=== PATIENT | male | born 1945 | race Caucasian/White ===

== ENCOUNTER 2016-11-03 13:45 | Inpatient (IN) | payer MEDICARE, MEDICAID, OTHER ==
[2016-11-03] MEDS ORDERED: METHYLPREDNISOLONE 125 MG/2 ML VIAL IV ONE (13:59)
[2016-11-03] MEDS ORDERED: Albuterol/Ipratropium Neb 3 ML NEB NEB ONE (13:59)
[2016-11-03] MEDS ORDERED: ALBUTEROL 0.083% 3 ML NEB NEB ONE ×2 (13:59→15:33)
--- NOTE | 2016-11-03 14:05 | EDPRACDOC ---
- General Information Information Source: Patient Mode Of Arrival: Car - History of Present Illness Onset: last night HPI: Patient reports increasing SOB for about 3 days, using inhaler x 4 today without relief, states has O2 at home to wear when doing activities as needed. States normally does not wear it often. Reports fever, cough with minimal sputum production and unsure of color. No ear pain or sore throat. Denies CP. Reports some abdominal pain but has gastroenteritis at this time per patient. Patient with hx of COPD. Current Symptoms: Reports: Cough Shortness of Breath: Moderate Cough: Reports: Productive Ear Symptoms: Reports: None Fever Severity/Quality: Reports: subjective Oral Intake: Normal Urinary Output: Normal Relevant History of: COPD Associated Signs & Symptoms:: Reports: Cough <Radha Alva - Last Filed: 11/03/16 14:55> <Alia Sanchez - Last Filed: 11/03/16 15:45> - General Information Chief Complaint: Dyspnea/Resp distress Stated Complaint: COUGH/SHOB - HX COPD Time Seen by Provider: 11/03/16 13:55 Home Medications: Home Medications Aspirin (Enteric Coated) [Halfprin] 1 mg PO DAILY 04/14/14 Budesonide/Formoterol Fumarate [Symbicort 160-4.5 Mcg Inhaler] 2 " INH .PRN Ca Carbonate/Vitamin D3/Vit K [Calcium + D Soft Chewable Tab] 1 mg PO TID Cyanocobalamin (Vitamin B-12) [Vitamin B-12] 1 mcg PO DAILY 04/14/14 Guaifenesin/Dextromethorphan [Siltussin Dm Self Liquid] 1 ml PO BID 04/14/14 Ipratropium/Albuterol Sulfate [Combivent Respimat] 2 mcg INH .PRN 04/14/14 Pantoprazole Sodium [Pantoprazole Sodium] 1 mg PO DAILY 04/14/14 Simethicone [Gas-X] 1 mg PO .PRN 04/14/14 Simvastatin 1 mg PO DAILY 04/14/14 Tamsulosin HCl [Flomax] 1 mg PO DAILY 04/14/14 Ibuprofen 600 mg PO TID 04/15/14 Allergies/Adverse Reactions: Allergies Allergy/AdvReac Type Severity Reaction Status Date / Time Penicillins Allergy Intermediate Itching Verified 11/03/16 13:48 adalimumab [From Humira] Allergy Rash-Genera Verified 11/03/16 13:49 lized cortisone [Cortisone] Allergy Rash-Locali Verified 11/03/16 13:48 zed ED Past Medical History - History Reviewed Yes Nurses notes reviewed and agree except as marked - Patient Medical History Respiratory History: Reports: Asthma, COPD, Emphysema Musculoskeletal History: Reports: Arthritis (rheumatoid), Rheumatoid Arthritis Systemic History: Reports: Cancer (prostate) Surgical History: Reports: Cholecystectomy, Tonsillectomy/Adnoidectomy - Family Medical History Reports: Cancer (FATHER COLON, BROTHER BLADDER CA, SISTER LUNG CA), Cardiac Disorders (FATHER). Denies: Hypertension, Diabetes, Stroke - Social Medical History Smoking Status: Heavy tobacco smoker (5 or more cigarettes/day or daily pipe/ cigar) ETOH: Social Substance Abuse: None Lives In: Home <Camden Alvay Umberto - Last Filed: 11/03/16 14:55> EDM Review of Systems - Review of Systems ROS Negative Except as Marked: Yes All systems reviewed and were negative except as marked Constitutional: Fever Eyes: No Symptoms Reported Ears: No Symptoms Reported Throat: No Symptoms Reported Mouth: No Symptoms Reported Respiratory: Cough, Shortness of Breath, Wheezing, Sputum, Dyspnea Cardiovascular: No Symptoms Reported Gastrointestinal: Pain Genitourinary: No Symptoms Reported Neurological: No Symptoms Reported Musculoskeletal: No Symptoms Reported Integumentary: No Symptoms Reported <Camden Alvay Umberto - Last Filed: 11/03/16 14:55> - Physical Exam Constitutional: Alert (Awake), No apparent distress Oriented to: Time, Person, Place Last recorded Vital Signs: Last Vital Signs Temp 98.5 F 11/03/16 13:49 Pulse 94 11/03/16 13:49 Resp 22 11/03/16 13:49 BP 151/83 11/03/16 13:49 Pulse Ox 88 L 11/03/16 13:49 Oxygen Pulse Oxygen Saturation 88 O2 Device Oxygen Flow Rate Fraction of Inspired Oxygen ( FIO2) - HEENT Head: Normal ( normocephalic) Eye Exam: Normal (PERRL, EOMI, Sclera white) Oropharynx: Normal (Pharynx:Moist without exudate,Gums-no swelling) Neck: Normal (FROM, trachea at midline) - Respiratory/Cardiovascular Respiratory: Diminished, Wheezes Cardiovascular: Normal (RRR without murmur, gallop or rub) - GI Auscultation: Normal (NABS) Tenderness: Non tender - Musculoskeletal Back: Normal (Non-Tender) Extremities: Normal (Normal tone, Pulses 2+ No cyanosis or edema, FROM) - Integumentary Skin: Normal, Warm, Dry Lymphatics: Normal (no adenopathy) - Neurologic Memory Impaired: Normal Motor Function: Normal (Normal tone, Pulses 2+ No cyanosis or edema, FROM) Mood Description: Normal <ArtieRadha - Last Filed: 11/03/16 14:55> - Physical Exam Last recorded Vital Signs: Last Vital Signs Temp 98.5 F 11/03/16 13:49 Pulse 90 11/03/16 14:41 Resp 24 11/03/16 14:41 BP 154/69 11/03/16 14:41 Pulse Ox 95 11/03/16 14:41 Oxygen Pulse Oxygen Saturation 95 O2 Device Partial Rebreather Oxygen Flow Rate Fraction of Inspired Oxygen ( FIO2) <Alia Sanchez - Last Filed: 11/03/16 15:45> - Results 11/03/16 14:10 11/03/16 14:10 - EKG EKG #1 EKG Time: 14:01 -: Yes EKG interpreted by me Rate: bpm: 88 [place]: LAD Rhythm: NSR Block: None ST: Nonsp <Camden Alvay Umberto - Last Filed: 11/03/16 14:55> - Results 11/03/16 14:10 11/03/16 15:00 WBC 9.2 xk/uL (3.8-10.8) 11/03/16 14:10 RBC 4.89 xM/uL (4.70-6.10) 11/03/16 14:10 Hgb 15.8 g/dL (14.0-18.0) 11/03/16 14:10 Hct 47.4 % (42-52) 11/03/16 14:10 MCV 97 fL (80-94) H 11/03/16 14:10 MCH 32.4 pg (27-32) H 11/03/16 14:10 MCHC 33.4 g/dl (33-36) 11/03/16 14:10 RDW 13.0 % (11.5-14.5) 11/03/16 14:10 Plt Count 169 xk/uL (130-400) 11/03/16 14:10 MPV 8.7 fL (7.4-10.4) 11/03/16 14:10 Neut % (Auto) 72.3 % (45-76) 11/03/16 14:10 Lymph % (Auto) 12.3 % (17-44) L 11/03/16 14:10 [place] % (Auto) 14.5 % (3-10) H 11/03/16 14:10 Eos % (Auto) 0.1 % (0-5) 11/03/16 14:10 Baso % (Auto) 0.8 % (0-2) 11/03/16 14:10 Absolute Neuts (auto) 6.62 xk/uL (1.7-8.2) 11/03/16 14:10 Absolute Lymphs (auto) 1.10 xk/uL (0.65-4.75) 11/03/16 14:10 PT 10.5 SEC (9.2-11.2) 11/03/16 14:10 INR 1.0 11/03/16 14:10 APTT 27.7 SEC (22-35) 11/03/16 14:10 Puncture Site Right radial 11/03/16 14:25 pH 7.420 pH UNITS (7.35-7.45) 11/03/16 14:25 pCO2 39.0 mmHg (35-45) 11/03/16 14:25 pO2 58.0 mmHg (80-100) L 11/03/16 14:25 HCO3 25.3 MMOL/L (22-26) 11/03/16 14:25 Total CO2 26.5 MMOL/L (23-27) 11/03/16 14:25 Base Excess 0.8 (+/- 2) 11/03/16 14:25 FiO2 % 2lpmnc 11/03/16 14:25 Specimen Drawn By Omar 11/03/16 14:25 Sodium 135 mEq/L (137-146) L 11/03/16 15:00 Potassium 4.1 mEq/L (3.5-5.1) 11/03/16 15:00 Chloride 97 mEq/L (98-107) L 11/03/16 15:00 Carbon Dioxide 25 mMOL/L (22-33) 11/03/16 15:00 Anion Gap 17 mEq/L (8-16) H 11/03/16 15:00 BUN 9 MG/DL (9-20) 11/03/16 15:00 Creatinine 0.60 MG/DL (0.66-1.25) L 11/03/16 15:00 Estimated GFR (MDRD) > 60 mL/min (>=60) 11/03/16 15:00 Glucose 86 MG/DL (70-99) 11/03/16 15:00 Calculated Osmolality 258 MOs/Kg (270-290) L 11/03/16 15:00 Calcium 8.7 MG/DL (8.4-10.2) 11/03/16 15:00 Total Bilirubin 0.5 MG/DL (0.2-1.3) 11/03/16 15:00 AST 63 IU/L (17-59) H 11/03/16 15:00 ALT 54 IU/L (21-72) 11/03/16 15:00 Alkaline Phosphatase 81 IU/L (50-160) 11/03/16 15:00 Creatine Kinase 42 IU/L (55-170) L 11/03/16 15:00 Troponin I < 0.01 ng/mL (<.04) 11/03/16 15:00 Yhq-W-Hfrzcpbgcpv Pept 274 pg/mL (0-900) 11/03/16 15:00 Total Protein 7.8 G/DL (6.3-8.2) 11/03/16 15:00 Albumin 4.2 G/DL (3.5-5.0) 11/03/16 15:00 Lab Results 11/03/16 11/03/16 11/03/16 15:00 14:25 14:10 WBC RBC Hgb Hct MCV MCH MCHC RDW Plt Count MPV Neut % (Auto) Lymph % (Auto) [place] % (Auto) Eos % (Auto) Baso % (Auto) Absolute Neuts (auto) Absolute Lymphs (auto) PT 10.5 INR 1.0 APTT 27.7 Puncture Site Right radial pH 7.420 pCO2 39.0 pO2 58.0 L HCO3 25.3 Total CO2 26.5 Base Excess 0.8 FiO2 % 2lpmnc Specimen Drawn By Omar Sodium 135 L Potassium 4.1 Chloride 97 L Carbon Dioxide 25 Anion Gap 17 H BUN 9 Creatinine 0.60 L Estimated GFR (MDRD) > 60 Glucose 86 Calculated Osmolality 258 L Calcium 8.7 Total Bilirubin 0.5 AST 63 H ALT 54 Alkaline Phosphatase 81 Creatine Kinase 42 L Troponin I < 0.01 Clq-L-Nfuahwiozkp Pept 274 Total Protein 7.8 Albumin 4.2 11/03/16 14:10 WBC 9.2 RBC 4.89 Hgb 15.8 Hct 47.4 MCV 97 H MCH 32.4 H MCHC 33.4 RDW 13.0 Plt Count 169 MPV 8.7 Neut % (Auto) 72.3 Lymph % (Auto) 12.3 L [place] % (Auto) 14.5 H Eos % (Auto) 0.1 Baso % (Auto) 0.8 Absolute Neuts (auto) 6.62 Absolute Lymphs (auto) 1.10 PT INR APTT Puncture Site pH pCO2 pO2 HCO3 Total CO2 Base Excess FiO2 % Specimen Drawn By Sodium Potassium Chloride Carbon Dioxide Anion Gap BUN Creatinine Estimated GFR (MDRD) Glucose Calculated Osmolality Calcium Total Bilirubin AST ALT Alkaline Phosphatase Creatine Kinase Troponin I Xyo-O-Actdknhsthy Pept Total Protein Albumin <Alia Sanchez - Last Filed: 11/03/16 15:45> <Radha Alva - Last Filed: 11/03/16 14:55> - Departure Yes I personally saw and evaluated the patient. Disposition: Admit IP To This Hospital Education/Counseling Given To: Patient Education/Counseling Given Regarding: Diagnosis, Treatment Decision to Admit Time: 15:42 Decision to admit date: 11/03/16 Decision to admit: from ED - Physician Consulted Hospitalist Provider Called: Gissel Arreola <Alia Sanchez - Last Filed: 11/03/16 15:45> - Departure Condition: Fair Final Diagnosis: Acute bronchitis, Acute exacerbation of chronic obstructive airways disease, Tobacco abuse Referrals: German Kirk MD [Primary Care Provider] - One Week
[2016-11-03 14:28] LABS: AUTOMATED BASOPHIL 0.8 % (0-2); AUTOMATED EOSINOPHIL 0.1 % (0-5); AUTOMATED LYMPH 12.3 % (17-44); AUTOMATED MONOCYTE 14.5 % (3-10); AUTOMATED NEUTROPHIL 72.3 % (45-76); MPV 8.7 fL (7.4-10.4)
[2016-11-03 14:31] LABS: ABG Draw Site Right Radial; ALLEN'S TEST PASS; BEb 0.8 (+/- 2); TCO2 26.5 MMOL/L (23-27)
[2016-11-03 14:41] LABS: PARTIAL THROMB. TIME 27.7 SEC (22-35)
--- NOTE | 2016-11-03 14:46 | DIRPT ---
CLINICAL DATA: Shortness of breath. EXAM: CHEST 2 VIEW COMPARISON: December 13, 2011. FINDINGS: The heart size and mediastinal contours are within normal limits. No pneumothorax or significant pleural effusion is noted. Stable mild biapical scarring is noted. No acute pulmonary disease is noted. Hyperinflation of the lungs is noted. The visualized skeletal structures are unremarkable. IMPRESSION: Hyperinflation of the lungs is noted. No acute cardiopulmonary abnormality seen. Electronically Signed By: Elton Rodriguez Jr, M.D. On: 11/03/2016 14:43
[2016-11-03 15:21] LABS: BLOOD UREA NITROGEN 9 MG/DL (9-20); CALCIUM 8.7 MG/DL (8.4-10.2); CALCULATED OSMOLALITY 258 MOs/Kg (270-290); CHLORIDE 97 mEq/L (98-107); CPK TOTAL WITH POSSIBLE MB 42 IU/L (55-170); GLUCOSE 86 MG/DL (70-99); SODIUM LEVEL 135 mEq/L (137-146); TOTAL PROTEIN 7.8 G/DL (6.3-8.2)
[2016-11-03] MEDS ORDERED: AZITHROMYCIN 250 MG TAB PO ONE (15:41)
[2016-11-03] MEDS ORDERED: CEFTRIAXONE 1 GM in D5W 100 ML IV ONE (15:41)
[2016-11-03] MEDS ORDERED: ONDANSETRON HCL 4 MG/2 ML VIAL IV PRN (16:12)
[2016-11-03] MEDS ORDERED: ALBUTEROL 0.083% 3 ML NEB NEB PRN (16:19)
--- NOTE | 2016-11-03 16:40 | HISTPHYS ---
- Chief Complaint Shortness of breath - History of Present Illness This is a pleasant 71-year-old male who was a history of tobacco abuse and has a history of COPD as a result. He is being admitted to the hospital this afternoon due to COPD exacerbation consisting of increased sputum production, shortness of breath and cough especially with exertion. The patient tells that he has been in his usual state of health, using oxygen only intermittently as needed with exertion, when in the last 4 5 days he started to get more shortness of breath, even at rest. He has some increased cough, but no sputum production. Denies any fevers or chills at home. Although he does later admit to feeling a little bit warm at home. He has some associated abdominal pain and nausea that started yesterday, though he is not had any diarrhea and has not vomited. No therapies tried prior to arrival. Exertion makes it worse, rest makes it better. He has been using his inhaled bronchodilators as well as bronchodilator medications by his nebulizer up to 4 times per day, without any relief and the last couple of days. As such, he presented to the emergency department this afternoon, and is being admitted to the hospital by the hospitalist group due to his COPD exacerbation. - Medical History Respiratory History: Reports: Asthma, COPD, Emphysema Musculoskeletal History: Reports: Arthritis (rheumatoid), Rheumatoid Arthritis Systemic History: Reports: Cancer (prostate) - Surgical History Reports: Cholecystectomy, Tonsillectomy/Adnoidectomy - Medictions/Allergies Allergies Penicillins Allergy (Intermediate, Verified 11/03/16 13:48) Itching adalimumab [From Humira] Allergy (Verified 11/03/16 13:49) Rash-Generalized cortisone [Cortisone] Allergy (Verified 11/03/16 13:48) Rash-Localized Home Medications Aspirin (Enteric Coated) [Halfprin] 1 mg PO DAILY 04/14/14 Budesonide/Formoterol Fumarate [Symbicort 160-4.5 Mcg Inhaler] 2 " INH .PRN Ca Carbonate/Vitamin D3/Vit K [Calcium + D Soft Chewable Tab] 1 mg PO TID Cyanocobalamin (Vitamin B-12) [Vitamin B-12] 1 mcg PO DAILY 04/14/14 Guaifenesin/Dextromethorphan [Siltussin Dm Self Liquid] 1 ml PO BID 04/14/14 Ipratropium/Albuterol Sulfate [Combivent Respimat] 2 mcg INH .PRN 04/14/14 Pantoprazole Sodium [Pantoprazole Sodium] 1 mg PO DAILY 04/14/14 Simethicone [Gas-X] 1 mg PO .PRN 04/14/14 Simvastatin 1 mg PO DAILY 04/14/14 Tamsulosin HCl [Flomax] 1 mg PO DAILY 04/14/14 Ibuprofen 600 mg PO TID 04/15/14 - Family History Reports: Cancer (FATHER COLON, BROTHER BLADDER CA, SISTER LUNG CA), Cardiac Disorders (FATHER). Denies: Hypertension, Diabetes, Stroke - Social History Smoking Status: Heavy tobacco smoker (5 or more cigarettes/day or daily pipe/ cigar) - Review of Systems Yes All systems reviewed and were negative except as marked (And as mentioned in the history of present illness.) - Physical Exam Vital Signs: Initial Vitals Temperature 98.5 F 11/03/16 13:49 Pulse Rate 94 11/03/16 13:49 Respiratory Rate 22 11/03/16 13:49 Blood Pressure 151/83 11/03/16 13:49 Pulse Oxygen Saturation 88 L 11/03/16 13:49 Constitutional: No apparent distress, Alert Oriented to: Time, Person, Place Exam: Breathing comfortably on nasal cannula oxygen. Able to speak full sentences. - HEENT Head: Normal (normocephalic,atraumatic, trachea midline) Eye: Normal (EOMI, Sclera white) Oropharynx: Normal (moist) Nose: No Symptoms Reported (without discharge or bleeding) Respiratory: Diminished, Rales, Rhonchi, Wheezes. negative: Tachypnea, Excursion Cardiovascular: Normal (RRR, no murmurs, rubs or gallops) - GI Palpation: Normal (soft, non distended and nontender) - Musculoskeletal Extremities: Normal (normal tone, no cyanosis or edema) - Integumentary Skin: Normal (no rashes or lesions) - Focused CV Perfusion Exam Vital Signs: Last Vital Signs Temp 98.5 F 11/03/16 13:49 Pulse 94 11/03/16 16:12 Resp 18 11/03/16 16:12 BP 145/67 11/03/16 16:12 Pulse Ox 88 L 11/03/16 16:12 - Lab Results Laboratory Tests 11/03/16 11/03/16 11/03/16 14:10 14:10 14:25 WBC 9.2 Hgb 15.8 Hct 47.4 Plt Count 169 INR 1.0 pH 7.420 pCO2 39.0 pO2 58.0 L Sodium Potassium BUN Creatinine Total Bilirubin AST ALT Troponin I 11/03/16 15:00 WBC Hgb Hct Plt Count INR pH pCO2 pO2 Sodium 135 L Potassium 4.1 BUN 9 Creatinine 0.60 L Total Bilirubin 0.5 AST 63 H ALT 54 Troponin I < 0.01 - Diagnostic Findings Chest x-ray: The heart size and mediastinal contours are within normal limits. No pneumothorax or significant pleural effusion is noted. Stable mild biapical scarring is noted. No acute pulmonary disease is noted. Hyperinflation of the lungs is noted. The visualized skeletal structures are unremarkable. - Assessment (1) Acute exacerbation of chronic obstructive airways disease J44.1 - CHRONIC OBSTRUCTIVE PULMONARY DISEASE W (ACUTE) EXACERBATION Acute Patient being admitted to the hospital with COPD exacerbation, consisting of hypoxia and increased wheezing, cough with exertion. COPD education will be provided, supplemental oxygen as needed and will be weaned as tolerated. Patient will be given empiric IV antibiotics azithromycin and Rocephin, as well as IV steroid dose and taper. IV PPI while on IV steroids. Aggressive pulmonary toilet will be provided, respiratory therapy has been consulted. Check repeat x-ray in the morning (2) Nausea R11.0 - NAUSEA Acute P.r.n. Zofran IV (3) BPH (benign prostatic hyperplasia) N40.0 - BENIGN PROSTATIC HYPERPLASIA WITHOUT LOWER URINRY TRACT SYMP Acute Qualifiers: Prostatic enlargement morphology: P Lower urinary tract symptom presence: L Continue home Flomax (4) Acute bronchitis J20.9 - ACUTE BRONCHITIS, UNSPECIFIED Acute (5) Tobacco abuse Z72.0 - TOBACCO USE Acute
[2016-11-03] MEDS: PANTOPRAZOLE 40 MG VIAL IV SCH (18:19)
[2016-11-03] MEDS: ENOXAPARIN 40 MG/0.4 ML PFS SQ SCH (18:19)
[2016-11-03 18:30] LABS: CPK TOTAL WITH POSSIBLE MB 47 IU/L (55-170)
[2016-11-03] MEDS: Albuterol/Ipratropium Neb 3 ML NEB NEB SCH (18:45)
[2016-11-03] MEDS ORDERED: Vaccine Screening Complete SCH (19:00)
[2016-11-03] MEDS: METHYLPREDNISOLONE 125 MG/2 ML VIAL IV SCH (19:26)
[2016-11-04] MEDS: METHYLPREDNISOLONE 125 MG/2 ML VIAL IV SCH ×4 (01:11→20:39)
[2016-11-04] MEDS: Albuterol/Ipratropium Neb 3 ML NEB NEB SCH ×4 (03:16→19:44)
[2016-11-04 05:21] LABS: MPV 9.6 fL (7.4-10.4)
[2016-11-04 05:54] LABS: BLOOD UREA NITROGEN 12 MG/DL (9-20); CALCIUM 8.3 MG/DL (8.4-10.2); CALCULATED OSMOLALITY 258 MOs/Kg (270-290); CHLORIDE 98 mEq/L (98-107); GLUCOSE 126 MG/DL (70-99); SODIUM LEVEL 133 mEq/L (137-146)
--- NOTE | 2016-11-04 07:59 | GENMEDPROG ---
Chief Complaint: Wheezing and shortness of breath Subjective Note: On non-rebreather mask this morning, feels like his breathing is better in general. is at the bedside and tells me that he became severely short of breath and winded when he walked to the bathroom in his room. Notes Reviewed: Yes Events from last night noted and discussed with Clinical Staff Current Medication List: Reviewed Currently: Reports: Cough, Wheezing, GIL, SOB, Sputum DVT Prophylaxis: Yes - Physical Examination Vital Signs and I&O: Last Vital Signs Temp 97.6 F 11/04/16 07:50 Pulse 80 11/04/16 07:50 Resp 20 11/04/16 07:50 BP 147/66 11/04/16 07:50 Pulse Ox 91 11/04/16 07:50 Oxygen Pulse Oxygen Saturation 91 O2 Device Venturi Mask Oxygen Flow Rate 10 Fraction of Inspired Oxygen ( 40 FIO2) Intake & Output 11/02/16 11/03/16 11/04/16 11/05/16 06:59 06:59 06:59 06:59 Intake Total 100 Output Total 550 Balance -450 Patient's weight 71.35 kg General: Alert, Oriented x3, Cooperative, Mild distress Respiratory: Diminished, Rales, Rhonchi, Wheezes. negative: Tachypnea, Excursion Cardiovascular: Regular rate, No Gallops,Rubs/Murmurs GI: Normal bowel sounds, Soft, Non tender (non distended) Extremities/Musculoskeletal: Other (Normal Tone). negative: Edema, Cyanosis Lab/DI/Studies Reviewed: Laboratory Tests 11/04/16 11/04/16 04:45 04:45 WBC 5.0 Hgb 13.8 L D Potassium 4.5 BUN 12 Creatinine 0.50 L - Assessment (1) Acute exacerbation of chronic obstructive airways disease Acute J44.1 - CHRONIC OBSTRUCTIVE PULMONARY DISEASE W (ACUTE) EXACERBATION Comment/Plan: Patient was admitted to the hospital with COPD exacerbation, consisting of hypoxia and increased wheezing, cough with exertion. COPD education will be provided, supplemental oxygen as needed and will be weaned as tolerated. Patient is on empiric IV antibiotics azithromycin and Rocephin, as well as IV steroid dose and taper. IV PPI while on IV steroids. Aggressive pulmonary toilet will be provided, respiratory therapy has been consulted. Repeat chest x-ray this morning is pending, will be followed up on. (2) Nausea Acute R11.0 - NAUSEA Comment/Plan: P.r.n. Zofran IV (3) BPH (benign prostatic hyperplasia) Acute N40.0 - BENIGN PROSTATIC HYPERPLASIA WITHOUT LOWER URINRY TRACT SYMP Qualifiers: Prostatic enlargement morphology: P Lower urinary tract symptom presence: L Comment/Plan: Has history of prostate cancer. Continue home Flomax. He is followed by his urologist with periodic PSA levels. (4) Acute bronchitis Acute J20.9 - ACUTE BRONCHITIS, UNSPECIFIED (5) Tobacco abuse Acute Z72.0 - TOBACCO USE
[2016-11-04] MEDS: GUAIFEN 100 MG-DEXTROMETH 10 MG PER 5 ML PO SCH ×2 (09:07→20:39)
[2016-11-04] MEDS: TAMSULOSIN HCL 0.4 MG CAP PO SCH (09:08)
[2016-11-04] MEDS: SIMVASTATIN 40 MG TAB PO SCH (09:08)
--- NOTE | 2016-11-04 09:09 | DIRPT ---
CLINICAL DATA: Pneumonia, chest congestion and cough. EXAM: CHEST 2 VIEW COMPARISON: 11/03/2016. FINDINGS: COPD. Normal heart size. Atherosclerosis. Bronchitic change without focal infiltrates or failure. Chronic blunting CP angles. IMPRESSION: No active cardiopulmonary disease. Hyperinflation. No active infiltrates. Electronically Signed By: Rohit Bobo M.D. On: 11/04/2016 09:07
[2016-11-04] MEDS: AZITHROMYCIN 500 MG in D5W 250 ML IV SCH (16:09)
[2016-11-04] MEDS: CEFTRIAXONE 1 GM in D5W 100 ML IV SCH (18:08)
[2016-11-04] MEDS: ENOXAPARIN 40 MG/0.4 ML PFS SQ SCH (18:08)
[2016-11-04] MEDS: PANTOPRAZOLE 40 MG VIAL IV SCH (18:08)
[2016-11-05] MEDS: Albuterol/Ipratropium Neb 3 ML NEB NEB SCH ×4 (01:36→19:46)
[2016-11-05] MEDS: METHYLPREDNISOLONE 125 MG/2 ML VIAL IV SCH ×4 (01:56→21:44)
[2016-11-05 03:11] LABS: MPV 9.9 fL (7.4-10.4)
[2016-11-05 03:30] LABS: BLOOD UREA NITROGEN 14 MG/DL (9-20); CALCIUM 8.6 MG/DL (8.4-10.2); CALCULATED OSMOLALITY 263 MOs/Kg (270-290); CHLORIDE 99 mEq/L (98-107); GLUCOSE 129 MG/DL (70-99); SODIUM LEVEL 135 mEq/L (137-146)
[2016-11-05] MEDS: SIMVASTATIN 40 MG TAB PO SCH (08:20)
[2016-11-05] MEDS: TAMSULOSIN HCL 0.4 MG CAP PO SCH (08:20)
[2016-11-05] MEDS: GUAIFEN 100 MG-DEXTROMETH 10 MG PER 5 ML PO SCH ×2 (08:20→21:44)
[2016-11-05] MEDS: BUDESONIDE 0.5 MG NEB NEB SCH ×2 (09:01→19:49)
--- NOTE | 2016-11-05 09:34 | GENMEDPROG ---
Chief Complaint: COPD exacerbation Subjective Note: Overall slightly improved, but still getting very winded when he tries start to much, or ambulate to the bathroom. Notes Reviewed: Yes Events from last night noted and discussed with Clinical Staff Current Medication List: Reviewed Currently: Reports: Cough, Wheezing, GIL, SOB, Sputum DVT Prophylaxis: Yes - Physical Examination Vital Signs and I&O: Last Vital Signs Temp 97.9 F 11/05/16 07:39 Pulse 70 11/05/16 08:00 Resp 18 11/05/16 07:39 BP 118/67 11/05/16 07:39 Pulse Ox 94 11/05/16 08:54 Oxygen Pulse Oxygen Saturation 94 O2 Device Nasal Cannula Oxygen Flow Rate 4 Fraction of Inspired Oxygen ( 45 FIO2) Intake & Output 11/03/16 11/04/16 11/05/16 11/06/16 06:59 06:59 06:59 06:59 Intake Total 100 1060 Output Total 550 550 Balance -450 510 Patient's weight 71.35 kg 72.575 kg General: Alert, Oriented x3, Cooperative, Mild distress Respiratory: Diminished, Rales, Rhonchi, Wheezes (Slightly improved today). negative: Tachypnea, Excursion Cardiovascular: Regular rate, No Gallops,Rubs/Murmurs GI: Normal bowel sounds, Soft, Non tender (non distended) Extremities/Musculoskeletal: Other (Normal Tone). negative: Edema, Cyanosis Lab/DI/Studies Reviewed: Laboratory Tests 11/03/16 11/03/16 11/04/16 17:50 20:21 04:45 WBC 5.0 Hgb Potassium BUN Creatinine Troponin I < 0.01 < 0.01 11/05/16 11/05/16 02:30 02:30 WBC 15.6 H Hgb 13.7 L Potassium 4.5 BUN 14 Creatinine 0.50 L Troponin I - Assessment (1) Acute exacerbation of chronic obstructive airways disease Acute J44.1 - CHRONIC OBSTRUCTIVE PULMONARY DISEASE W (ACUTE) EXACERBATION Comment/Plan: Patient was admitted to the hospital with COPD exacerbation, consisting of hypoxia and increased wheezing, cough with exertion. COPD education will be provided, supplemental oxygen as needed and will be weaned as tolerated. Patient is on empiric IV antibiotics azithromycin and Rocephin, as well as IV steroid dose and taper. IV PPI while on IV steroids. Aggressive pulmonary toilet will be provided, respiratory therapy has been consulted. Continue present therapy, will not wean IV steroids further today as he is still getting quite winded. Wean oxygen as able later today. (2) Nausea Acute R11.0 - NAUSEA Comment/Plan: P.rlakeshia Zofran IV (3) BPH (benign prostatic hyperplasia) Acute N40.0 - BENIGN PROSTATIC HYPERPLASIA WITHOUT LOWER URINRY TRACT SYMP Qualifiers: Prostatic enlargement morphology: P Lower urinary tract symptom presence: L Comment/Plan: Has history of prostate cancer. Continue home Flomax. He is followed by his urologist with periodic PSA levels. (4) Acute bronchitis Acute J20.9 - ACUTE BRONCHITIS, UNSPECIFIED (5) Tobacco abuse Acute Z72.0 - TOBACCO USE
[2016-11-05] MEDS: CETIRIZINE HCL 10 MG TAB PO SCH (10:14)
[2016-11-05] MEDS: NICOTINE 21 MG PATCH TOP SCH (10:21)
[2016-11-05] MEDS: AZITHROMYCIN 500 MG in D5W 250 ML IV SCH (16:02)
[2016-11-05] MEDS: CEFTRIAXONE 1 GM in D5W 100 ML IV SCH (17:57)
[2016-11-05] MEDS: ENOXAPARIN 40 MG/0.4 ML PFS SQ SCH (17:57)
[2016-11-05] MEDS: PANTOPRAZOLE 40 MG TAB PO SCH (18:46)
[2016-11-06] MEDS: Albuterol/Ipratropium Neb 3 ML NEB NEB SCH ×4 (01:08→19:50)
[2016-11-06] MEDS: METHYLPREDNISOLONE 125 MG/2 ML VIAL IV SCH ×4 (01:54→19:47)
[2016-11-06] MEDS: ACETAMINOPHEN 325 MG/TAB TABLET PO PRN ×2 (02:00→15:06)
[2016-11-06 03:51] LABS: MPV 9.7 fL (7.4-10.4)
[2016-11-06 04:01] LABS: BLOOD UREA NITROGEN 14 MG/DL (9-20); CALCIUM 8.5 MG/DL (8.4-10.2); CALCULATED OSMOLALITY 264 MOs/Kg (270-290); CHLORIDE 102 mEq/L (98-107); GLUCOSE 121 MG/DL (70-99); SODIUM LEVEL 136 mEq/L (137-146)
[2016-11-06] MEDS: PANTOPRAZOLE 40 MG TAB PO SCH (05:46)
[2016-11-06] MEDS: BUDESONIDE 0.5 MG NEB NEB SCH ×2 (08:01→19:56)
[2016-11-06] MEDS: TAMSULOSIN HCL 0.4 MG CAP PO SCH (08:17)
[2016-11-06] MEDS: NICOTINE 21 MG PATCH TOP SCH (08:17)
[2016-11-06] MEDS: SIMVASTATIN 40 MG TAB PO SCH (08:18)
[2016-11-06] MEDS: CETIRIZINE HCL 10 MG TAB PO SCH (08:18)
[2016-11-06] MEDS: GUAIFEN 100 MG-DEXTROMETH 10 MG PER 5 ML PO SCH (08:18)
[2016-11-06] MEDS ORDERED: METHOTREXATE SODIUM 2.5 MG TAB PO SCH (09:00)
--- NOTE | 2016-11-06 12:19 | GENMEDPROG ---
Chief Complaint: sob still bad dry cough Notes Reviewed: Yes Events from last night noted and discussed with Clinical Staff Current Medication List: Reviewed Currently: Reports: Cough, Wheezing, GIL, SOB, Sputum DVT Prophylaxis: Yes - Physical Examination Vital Signs and I&O: Last Vital Signs Temp 97.5 F 11/06/16 11:23 Pulse 77 11/06/16 11:23 Resp 18 11/06/16 11:23 BP 143/73 11/06/16 11:23 Pulse Ox 93 11/06/16 11:23 Oxygen Pulse Oxygen Saturation 93 O2 Device Nasal Cannula Oxygen Flow Rate 3 Fraction of Inspired Oxygen ( 45 FIO2) Intake & Output 11/03/16 11/04/16 11/05/16 11/06/16 23:59 23:59 23:59 23:59 Intake Total 100 1060 1048 240 Output Total 550 1260 320 Balance 100 510 -212 -80 Patient's weight 70.579 kg 71.35 kg 72.575 kg 73.074 kg General: Alert, Oriented x3, Cooperative, Mild distress HEENT: Normal (Normocephalic, atraumatic;EOMI.Sclera white, Nares patent, without discharge or bleeding. No oropharyngeal lesions or erythema. Mucous membranes are dry.) Neck: Non-tender, Normal Trachea alignment, Normal inspection (No cervical lymphadenopathy. No supraclavicular lymphadenopathy.), No Masses palpable, Limited range of motion, Supple Lymphatics: Normal (No lymph node swelling or pain.) Respiratory: Diminished. negative: Rales, Rhonchi, Tachypnea, Wheezes, Excursion Cardiovascular: Regular rate and rhythm, Normal S1, No Gallops,Rubs/Murmurs, Normal S2 GI: Normal bowel sounds, Soft, Non tender (non distended) Extremities/Musculoskeletal: Other (Normal Tone). negative: Edema, Cyanosis Skin: Warm,Dry and Intact, No rashes, No significant lesion Neurological: Strength at 5/5 X4 ext (Motor 5/5 throughout.), Normal tone, Cranial nerves 3-12 NL ( 2-12 grossly intact.) Psych/Mental Status: Appropriate, Normal Affect Lab/DI/Studies Reviewed: 11/06/16 03:20 11/06/16 03:20 Laboratory Results - last 24 hr 11/06/16 11/06/16 03:20 03:20 WBC 13.9 H RBC 4.19 L Hgb 13.5 L Hct 41.1 L MCV 98 H MCH 32.2 H MCHC 32.9 L RDW 13.1 Plt Count 185 MPV 9.7 Sodium 136 L Potassium 4.5 Chloride 102 Carbon Dioxide 26 Anion Gap 13 BUN 14 Creatinine 0.50 L Estimated GFR (MDRD) > 60 Glucose 121 H Calculated Osmolality 264 L Calcium 8.5 - Assessment (1) Acute bronchitis Acute J20.9 - ACUTE BRONCHITIS, UNSPECIFIED Comment/Plan: On Rocephin Zithromax probiotic and steroids. (2) Acute exacerbation of chronic obstructive airways disease Acute J44.1 - CHRONIC OBSTRUCTIVE PULMONARY DISEASE W (ACUTE) EXACERBATION Comment/Plan: Patient was admitted to the hospital with COPD exacerbation, consisting of hypoxia and increased wheezing, cough with exertion. COPD education will be provided, supplemental oxygen as needed and will be weaned as tolerated. Patient is on empiric IV antibiotics azithromycin and Rocephin, as well as IV steroid dose and taper. IV PPI while on IV steroids. Aggressive pulmonary toilet will be provided, respiratory therapy has been consulted. Continue present therapy, will not wean IV steroids further today as he is still getting quite winded. Wean oxygen as able later today. (3) BPH (benign prostatic hyperplasia) Acute N40.0 - BENIGN PROSTATIC HYPERPLASIA WITHOUT LOWER URINRY TRACT SYMP Qualifiers: Prostatic enlargement morphology: unspecified morphology Lower urinary tract symptom presence: presence of symptoms unspecified Qualified Code(s): N40.0 - Benign prostatic hyperplasia without lower urinary tract symptoms Comment/Plan: Has history of prostate cancer. Continue home Flomax. He is followed by his urologist with periodic PSA levels. (4) Tobacco abuse Acute Z72.0 - TOBACCO USE Comment/Plan: 10 minutes discussion undertaken with concerning smoking cessation. He indicated he will attempt to quit. Case Care Discussed with: Patient, Nursing Staff, Resource Management, Other Education/Counseling Given To: Patient, Significant Other Education/Counseling Given Regarding: Diagnosis Total Time: 38 min + 10 min discussing cessation Critical Care: No Code: 29121 (12+) (407)
[2016-11-06] MEDS ORDERED: METHOTREXATE SODIUM 12.5 MG PO SCH (12:30)
[2016-11-06] MEDS ORDERED: FLUTICASONE PROPIONATE 16 GM BOT NAS SCH (13:00)
[2016-11-06] MEDS: AZITHROMYCIN 500 MG in D5W 250 ML IV SCH (16:22)
[2016-11-06] MEDS: NACL 0.65% NASAL 45 ML BOTTLE NAS SCH ×2 (16:22→19:46)
[2016-11-06] MEDS: PROBIOTIC BLEND TAB PO SCH (16:23)
[2016-11-06] MEDS: CALCIUM CARBONATE + VITAMIN D 500 MG TAB PO SCH (16:24)
[2016-11-06] MEDS: CEFTRIAXONE 1 GM in D5W 100 ML IV SCH (17:39)
[2016-11-06] MEDS: ENOXAPARIN 40 MG/0.4 ML PFS SQ SCH (17:40)
[2016-11-06] MEDS: GUAIFENESIN 200 MG/10 ML UDC PO SCH (19:48)
[2016-11-07] MEDS: Albuterol/Ipratropium Neb 3 ML NEB NEB SCH ×4 (01:20→19:46)
[2016-11-07] MEDS: NACL 0.65% NASAL 45 ML BOTTLE NAS SCH ×5 (02:35→21:37)
[2016-11-07] MEDS: METHYLPREDNISOLONE 125 MG/2 ML VIAL IV SCH ×2 (02:35→07:57)
[2016-11-07 03:56] LABS: MPV 9.3 fL (7.4-10.4)
[2016-11-07 04:08] LABS: BLOOD UREA NITROGEN 13 MG/DL (9-20); CALCIUM 8.8 MG/DL (8.4-10.2); CALCULATED OSMOLALITY 263 MOs/Kg (270-290); CHLORIDE 100 mEq/L (98-107); GLUCOSE 108 MG/DL (70-99); SODIUM LEVEL 136 mEq/L (137-146)
[2016-11-07 05:00] VITALS: BMI 22.6
[2016-11-07] MEDS: PANTOPRAZOLE 40 MG TAB PO SCH ×2 (06:38→16:53)
[2016-11-07] MEDS: BUDESONIDE 0.5 MG NEB NEB SCH ×2 (07:40→19:50)
[2016-11-07] MEDS: FLUTICASONE PROPIONATE 16 GM BOT NAS SCH (07:56)
[2016-11-07] MEDS: TAMSULOSIN HCL 0.4 MG CAP PO SCH (07:58)
[2016-11-07] MEDS: NICOTINE 21 MG PATCH TOP SCH (07:59)
[2016-11-07] MEDS: CETIRIZINE HCL 10 MG TAB PO SCH (07:59)
[2016-11-07] MEDS: VITAMINS, MULTIPLE CAP PO SCH (07:59)
[2016-11-07] MEDS: FOLIC ACID 1 MG TAB PO SCH (07:59)
[2016-11-07] MEDS: GUAIFENESIN 200 MG/10 ML UDC PO SCH ×2 (07:59→21:37)
[2016-11-07] MEDS: SIMVASTATIN 40 MG TAB PO SCH (08:02)
[2016-11-07] MEDS: CHOLECALCIFEROL 1000 UNITS TAB PO SCH (11:50)
[2016-11-07] MEDS: PROBIOTIC BLEND TAB PO SCH ×2 (11:50→16:53)
[2016-11-07] MEDS: CALCIUM CARBONATE + VITAMIN D 500 MG TAB PO SCH ×2 (11:50→16:52)
--- NOTE | 2016-11-07 12:07 | GENMEDPROG ---
Chief Complaint: COUGH BETTER, HAD DIARRHEA TODAY Notes Reviewed: Yes Events from last night noted and discussed with Clinical Staff Current Medication List: Reviewed Currently: Reports: Cough, Wheezing, GIL, SOB, Sputum DVT Prophylaxis: Yes - Physical Examination Vital Signs and I&O: Last Vital Signs Temp 98.5 F 11/07/16 11:48 Pulse 78 11/07/16 11:48 Resp 22 11/07/16 11:48 BP 124/79 11/07/16 11:48 Pulse Ox 92 11/07/16 11:48 Oxygen Pulse Oxygen Saturation 92 O2 Device Nasal Cannula Oxygen Flow Rate 1 Fraction of Inspired Oxygen ( 45 FIO2) Intake & Output 11/04/16 11/05/16 11/06/16 11/07/16 23:59 23:59 23:59 23:59 Intake Total 1060 1048 850 480 Output Total 550 1260 620 575 Balance 510 -212 230 -95 Patient's weight 71.35 kg 72.575 kg 73.074 kg 71.35 kg General: Alert, Oriented x3, Cooperative, Mild distress HEENT: Normal (Normocephalic, atraumatic;EOMI.Sclera white, Nares patent, without discharge or bleeding. No oropharyngeal lesions or erythema. Mucous membranes are dry.) Neck: Non-tender, Normal Trachea alignment, Normal inspection (No cervical lymphadenopathy. No supraclavicular lymphadenopathy.), No Masses palpable, Limited range of motion, Supple Lymphatics: Normal (No lymph node swelling or pain.) Respiratory: Diminished. negative: Rales, Rhonchi, Tachypnea, Wheezes, Excursion Cardiovascular: Regular rate and rhythm, Normal S1, No Gallops,Rubs/Murmurs, Normal S2 GI: Normal bowel sounds, Soft, Non tender (non distended) Extremities/Musculoskeletal: Other (Normal Tone). negative: Swelling, Edema, Cyanosis Skin: Warm,Dry and Intact, No rashes, No significant lesion Neurological: Strength at 5/5 X4 ext (Motor 5/5 throughout.), Normal tone, Cranial nerves 3-12 NL ( 2-12 grossly intact.) Psych/Mental Status: Appropriate, Normal Affect Lab/DI/Studies Reviewed: 11/07/16 03:15 11/07/16 03:15 Laboratory Results - last 24 hr 11/07/16 11/07/16 03:15 03:15 WBC 9.1 RBC 4.41 L Hgb 14.5 Hct 43.2 MCV 98 H MCH 32.8 H MCHC 33.5 RDW 13.0 Plt Count 197 MPV 9.3 Sodium 136 L Potassium 4.4 Chloride 100 Carbon Dioxide 29 Anion Gap 11 BUN 13 Creatinine 0.50 L Estimated GFR (MDRD) > 60 Glucose 108 H Calculated Osmolality 263 L Calcium 8.8 - Assessment (1) Acute bronchitis Acute J20.9 - ACUTE BRONCHITIS, UNSPECIFIED Comment/Plan: On Rocephin Zithromax probiotic and steroids. (2) Acute exacerbation of chronic obstructive airways disease Acute J44.1 - CHRONIC OBSTRUCTIVE PULMONARY DISEASE W (ACUTE) EXACERBATION Comment/Plan: Patient was admitted to the hospital with COPD exacerbation, consisting of hypoxia and increased wheezing, cough with exertion. COPD education will be provided, supplemental oxygen as needed and will be weaned as tolerated. Patient is on empiric IV antibiotics azithromycin and Rocephin, as well as IV steroid dose and taper. IV PPI while on IV steroids. Aggressive pulmonary toilet will be provided, respiratory therapy has been consulted. Continue present therapy, will not wean IV steroids further today as he is still getting quite winded. Wean oxygen as able later today. (3) BPH (benign prostatic hyperplasia) Acute N40.0 - BENIGN PROSTATIC HYPERPLASIA WITHOUT LOWER URINRY TRACT SYMP Qualifiers: Prostatic enlargement morphology: unspecified morphology Lower urinary tract symptom presence: presence of symptoms unspecified Qualified Code(s): N40.0 - Benign prostatic hyperplasia without lower urinary tract symptoms Comment/Plan: Has history of prostate cancer. Continue home Flomax. He is followed by his urologist with periodic PSA levels. (4) Tobacco abuse Acute Z72.0 - TOBACCO USE Comment/Plan: REINFORCED 10 minutes discussion undertaken with concerning smoking cessation. He indicated he will attempt to quit. Case Care Discussed with: Patient, Nursing Staff, Other Education/Counseling Given To: Patient, Significant Other Education/Counseling Given Regarding: Diagnosis, Treatment Total Time: 37 MIN Critical Care: No Code: 03828 (12+)
[2016-11-07] MEDS: AZITHROMYCIN 500 MG in D5W 250 ML IV SCH (16:51)
[2016-11-07] MEDS: METHYLPREDNISOLONE 40 MG/1 ML VIAL IV SCH (16:52)
[2016-11-07] MEDS: ENOXAPARIN 40 MG/0.4 ML PFS SQ SCH (16:53)
[2016-11-07] MEDS ORDERED: Medication Special Instructions SCH (17:00)
[2016-11-07] MEDS ORDERED: LIDOCAINE 1% 2 ML (METHYLPARABEN FREE) NEB PRN (17:04)
[2016-11-07] MEDS: MORPHINE 2 MG/ML INJECTION NEB PRN (17:09)
[2016-11-07] MEDS: BENZONATATE 100 MG PERLES PO SCH (18:11)
[2016-11-07] MEDS: CEFTRIAXONE 1 GM in D5W 100 ML IV SCH (18:11)
[2016-11-07] MEDS: TUSSIONEX 5 ML ORAL SYRINGE PO SCH (21:37)
[2016-11-08] MEDS: METHYLPREDNISOLONE 40 MG/1 ML VIAL IV SCH ×4 (00:58→23:52)
[2016-11-08] MEDS: NACL 0.65% NASAL 45 ML BOTTLE NAS SCH ×6 (01:00→23:52)
[2016-11-08] MEDS: Albuterol/Ipratropium Neb 3 ML NEB NEB SCH ×4 (01:42→19:30)
[2016-11-08 05:01] LABS: BLOOD UREA NITROGEN 17 MG/DL (9-20); CALCIUM 8.6 MG/DL (8.4-10.2); CALCULATED OSMOLALITY 263 MOs/Kg (270-290); CHLORIDE 100 mEq/L (98-107); GLUCOSE 112 MG/DL (70-99); SODIUM LEVEL 135 mEq/L (137-146)
[2016-11-08] MEDS: BENZONATATE 100 MG PERLES PO SCH ×3 (05:31→20:01)
[2016-11-08] MEDS: PANTOPRAZOLE 40 MG TAB PO SCH ×2 (05:31→18:05)
[2016-11-08] MEDS: TAMSULOSIN HCL 0.4 MG CAP PO SCH (07:52)
[2016-11-08] MEDS: FLUTICASONE PROPIONATE 16 GM BOT NAS SCH (07:53)
[2016-11-08] MEDS: FOLIC ACID 1 MG TAB PO SCH (07:54)
[2016-11-08] MEDS: NICOTINE 21 MG PATCH TOP SCH (07:54)
[2016-11-08] MEDS: VITAMINS, MULTIPLE CAP PO SCH (07:55)
[2016-11-08] MEDS: CETIRIZINE HCL 10 MG TAB PO SCH (07:55)
[2016-11-08] MEDS: GUAIFENESIN 200 MG/10 ML UDC PO SCH ×2 (07:55→20:01)
[2016-11-08] MEDS: TUSSIONEX 5 ML ORAL SYRINGE PO SCH ×2 (07:55→20:01)
[2016-11-08] MEDS: SIMVASTATIN 40 MG TAB PO SCH (07:56)
[2016-11-08] MEDS: CHOLECALCIFEROL 1000 UNITS TAB PO SCH (07:57)
[2016-11-08] MEDS: CALCIUM CARBONATE + VITAMIN D 500 MG TAB PO SCH ×2 (07:58→18:05)
[2016-11-08] MEDS: BUDESONIDE 0.5 MG NEB NEB SCH ×2 (08:17→19:36)
[2016-11-08] MEDS: PROBIOTIC BLEND TAB PO SCH ×2 (11:46→18:05)
[2016-11-08] MEDS: ENOXAPARIN 40 MG/0.4 ML PFS SQ SCH (18:05)
[2016-11-08] MEDS: CEFTRIAXONE 1 GM in D5W 100 ML IV SCH (18:05)
[2016-11-08] MEDS: MORPHINE 2 MG/ML INJECTION NEB PRN (20:55)
--- NOTE | 2016-11-08 22:58 | GENMEDPROG ---
Chief Complaint: Severe cough yesterday is much improved with the lidocaine and morphine nebulizers as well as Tessalon and Tussionex still short of breath Notes Reviewed: Yes Events from last night noted and discussed with Clinical Staff Current Medication List: Reviewed Currently: Reports: Cough, Wheezing, GIL, SOB, Sputum DVT Prophylaxis: Yes - Physical Examination Vital Signs and I&O: Last Vital Signs Temp 97.8 F 11/08/16 21:26 Pulse 90 11/08/16 21:26 Resp 18 11/08/16 21:26 BP 138/81 11/08/16 21:26 Pulse Ox 92 11/08/16 21:26 Oxygen Pulse Oxygen Saturation 92 O2 Device Nasal Cannula Oxygen Flow Rate 2 Fraction of Inspired Oxygen ( 45 FIO2) Intake & Output 11/05/16 11/06/16 11/07/16 11/08/16 23:59 23:59 23:59 23:59 Intake Total 7268 379 5399 1170 Output Total 1260 204 567 5095 Balance -212 230 775 50 Patient's weight 72.575 kg 73.074 kg 71.35 kg 71.696 kg General: Alert, Oriented x3, Cooperative, Mild distress HEENT: Normal (Normocephalic, atraumatic;EOMI.Sclera white, Nares patent, without discharge or bleeding. No oropharyngeal lesions or erythema. Mucous membranes are dry.) Neck: Non-tender, Normal Trachea alignment, Normal inspection (No cervical lymphadenopathy. No supraclavicular lymphadenopathy.), No Masses palpable, Limited range of motion, Supple Lymphatics: Normal (No lymph node swelling or pain.) Respiratory: Diminished. negative: Rales, Rhonchi, Tachypnea, Wheezes, Excursion Cardiovascular: Regular rate and rhythm, Normal S1, No Gallops,Rubs/Murmurs, Normal S2 GI: Normal bowel sounds, Soft, Non tender (non distended) Extremities/Musculoskeletal: Other (Normal Tone). negative: Swelling, Edema, Cyanosis Skin: Warm,Dry and Intact, No rashes, No significant lesion Neurological: Strength at 5/5 X4 ext (Motor 5/5 throughout.), Normal tone, Cranial nerves 3-12 NL ( 2-12 grossly intact.) Psych/Mental Status: Appropriate, Normal Affect Lab/DI/Studies Reviewed: 11/08/16 04:15 11/08/16 04:15 Laboratory Results - last 24 hr 11/08/16 11/08/16 04:15 04:15 WBC 5.7 RBC 4.58 L Hgb 14.7 Hct 45.0 MCV 98 H MCH 32.1 H MCHC 32.7 L RDW 13.0 Plt Count 221 MPV 9.0 Sodium 135 L Potassium 4.9 Chloride 100 Carbon Dioxide 29 Anion Gap 11 BUN 17 Creatinine 0.60 L Estimated GFR (MDRD) > 60 Glucose 112 H Calculated Osmolality 263 L Calcium 8.6 - Assessment (1) Acute bronchitis Acute J20.9 - ACUTE BRONCHITIS, UNSPECIFIED Comment/Plan: On Rocephin Zithromax probiotic and steroids. (2) Acute exacerbation of chronic obstructive airways disease Acute J44.1 - CHRONIC OBSTRUCTIVE PULMONARY DISEASE W (ACUTE) EXACERBATION Comment/Plan: Patient was admitted to the hospital with COPD exacerbation, consisting of hypoxia and increased wheezing, cough with exertion. COPD education will be provided, supplemental oxygen as needed and will be weaned as tolerated. Patient is on empiric IV antibiotics azithromycin and Rocephin, as well as IV steroid dose and taper. IV PPI while on IV steroids. Aggressive pulmonary toilet will be provided, respiratory therapy has been consulted. Continue present therapy, will not wean IV steroids further today as he is still getting quite winded. Wean oxygen as able later today. (3) BPH (benign prostatic hyperplasia) Acute N40.0 - BENIGN PROSTATIC HYPERPLASIA WITHOUT LOWER URINRY TRACT SYMP Qualifiers: Prostatic enlargement morphology: unspecified morphology Lower urinary tract symptom presence: presence of symptoms unspecified Qualified Code(s): N40.0 - Benign prostatic hyperplasia without lower urinary tract symptoms Comment/Plan: Has history of prostate cancer. Continue home Flomax. He is followed by his urologist with periodic PSA levels. (4) Tobacco abuse Acute Z72.0 - TOBACCO USE Comment/Plan: REINFORCED 10 minutes discussion undertaken with concerning smoking cessation. He indicated he will attempt to quit. Case Care Discussed with: Patient, Nursing Staff, Resource Management Education/Counseling Given To: Patient Education/Counseling Given Regarding: Diagnosis, Treatment Total Time: 38 min Critical Care: No Code: 16572 (12+)
[2016-11-09] MEDS: Albuterol/Ipratropium Neb 3 ML NEB NEB SCH ×3 (01:26→14:09)
[2016-11-09] MEDS: BENZONATATE 100 MG PERLES PO SCH ×2 (05:26→15:06)
[2016-11-09] MEDS: PANTOPRAZOLE 40 MG TAB PO SCH (05:26)
[2016-11-09 06:01] LABS: MPV 8.6 fL (7.4-10.4)
[2016-11-09 06:16] LABS: BLOOD UREA NITROGEN 19 MG/DL (9-20); CALCIUM 8.8 MG/DL (8.4-10.2); CALCULATED OSMOLALITY 260 MOs/Kg (270-290); CHLORIDE 98 mEq/L (98-107); GLUCOSE 93 MG/DL (70-99); SODIUM LEVEL 134 mEq/L (137-146)
[2016-11-09] MEDS: BUDESONIDE 0.5 MG NEB NEB SCH (08:19)
[2016-11-09] MEDS: METHYLPREDNISOLONE 40 MG/1 ML VIAL IV SCH ×2 (09:19→15:07)
[2016-11-09] MEDS: FLUTICASONE PROPIONATE 16 GM BOT NAS SCH (09:20)
[2016-11-09] MEDS: TAMSULOSIN HCL 0.4 MG CAP PO SCH (09:20)
[2016-11-09] MEDS: NACL 0.65% NASAL 45 ML BOTTLE NAS SCH ×3 (09:20→15:06)
[2016-11-09] MEDS: GUAIFENESIN 200 MG/10 ML UDC PO SCH (09:21)
[2016-11-09] MEDS: NICOTINE 21 MG PATCH TOP SCH (09:21)
[2016-11-09] MEDS: VITAMINS, MULTIPLE CAP PO SCH (09:22)
[2016-11-09] MEDS: SIMVASTATIN 40 MG TAB PO SCH (09:22)
[2016-11-09] MEDS: TUSSIONEX 5 ML ORAL SYRINGE PO SCH (09:27)
[2016-11-09] MEDS: FOLIC ACID 1 MG TAB PO SCH (09:28)
[2016-11-09] MEDS: CETIRIZINE HCL 10 MG TAB PO SCH (09:28)
[2016-11-09] MEDS: PROBIOTIC BLEND TAB PO SCH (12:06)
[2016-11-09] MEDS: CALCIUM CARBONATE + VITAMIN D 500 MG TAB PO SCH (12:06)
[2016-11-09] MEDS: CHOLECALCIFEROL 1000 UNITS TAB PO SCH (12:07)
[2016-11-09 12:26] VITALS: BP 138/77; TEMP 98.3
--- NOTE | 2016-11-09 15:50 | PCM.DCS92 ---
- Final/Secondary Discharge Diagnosis (1) Acute bronchitis Acute J20.9 - ACUTE BRONCHITIS, UNSPECIFIED Present on Admission: Yes Comment: On Rocephin Zithromax probiotic and steroids. (2) Acute exacerbation of chronic obstructive airways disease Acute J44.1 - CHRONIC OBSTRUCTIVE PULMONARY DISEASE W (ACUTE) EXACERBATION Present on Admission: Yes Comment: Patient was admitted to the hospital with COPD exacerbation, consisting of hypoxia and increased wheezing, cough with exertion. COPD education will be provided, supplemental oxygen as needed and will be weaned as tolerated. Patient is on empiric IV antibiotics azithromycin and Rocephin, as well as IV steroid dose and taper. IV PPI while on IV steroids. Aggressive pulmonary toilet will be provided, respiratory therapy has been consulted. Continue present therapy, will not wean IV steroids further today as he is still getting quite winded. Wean oxygen as able later today. (3) BPH (benign prostatic hyperplasia) Acute N40.0 - BENIGN PROSTATIC HYPERPLASIA WITHOUT LOWER URINRY TRACT SYMP Present on Admission: Yes unspecified morphology presence of symptoms unspecified N40.0 - Benign prostatic hyperplasia without lower urinary tract symptoms Comment: Has history of prostate cancer. Continue home Flomax. He is followed by his urologist with periodic PSA levels. (4) Tobacco abuse Acute Z72.0 - TOBACCO USE Present on Admission: Yes Comment: REINFORCED 10 minutes discussion undertaken with concerning smoking cessation. He indicated he will attempt to quit. Discharge Disposition: Discharge w/ Home Health Discharge Condition: Improved Cognitive Discharge Status: Unimpaired Fuctional Discharge Status: Walker Assistance Physician Follow up/Referrals: German Kirk MD [Primary Care Provider] - 11/16/16 3:00 am Home Medications / New Prescriptions: New Azithromycin [Zithromax Tri-Everett] 500 mg PO DAILY #3 tablet Cefdinir [Omnicef] 300 mg PO BID #14 cap Hydrocodone/Chlorphen Polis [Tussionex] 5 ml PO BID #4 oz Nicotine [Nicoderm] 21 mg TOP DAILY #30 pat Prednisone [Sterapred DS 10 mg/12 day pack] 48 tab PO DIR #1 pack Probiotic Blend [Maru Q] 1 tab PO BIDLS #30 tablet Tamsulosin HCl [Flomax] 0.4 mg PO DAILY #30 capsule Continue Ipratropium/Albuterol Sulfate [Combivent Respimat] 1 puff IN QID Simvastatin 20 mg PO HS Budesonide/Formoterol Fumarate [Symbicort 160-4.5 Mcg Inhaler] 2 puff INH BID Guaifenesin 100 mg PO BID Calcium Carbonate/Vitamin D3 [Calcium 600-Vit D3 400 Tablet] 1 tab PO BID Multivitamin [Multivitamins] 1 each PO DAILY Cholecalciferol (Vitamin D3) [Children's Vitamin D3] 1,000 unit PO DAILY Folic Acid 1 mg PO DAILY Methotrexate Sodium [Methotrexate] 12.5 mg PO MARIE Aspirin (Enteric Coated) [Halfprin] 81 mg PO DAILY Albuterol Sulfate Nebs [Proventil, Ventolin] 3 ml NEB TID PRN PRN Reason: Shortness Of Breath Fluticasone Propionate [Flonase] 1 spray SADAF DAILY Alendronate Sodium [Fosamax] 70 mg PO MARIE No Action Prednisone [Deltasone, Orasone] 7 mg PO DAILY Sodium Chloride [Saline Nasal [place]] 1 spray SADAF 5XD Discharge Home Medication List Budesonide/Formoterol Fumarate [Symbicort 160-4.5 Mcg Inhaler] 2 puff INH BID [History Confirmed 11/09/16 Last Taken 11/09/16 08:20] Ipratropium/Albuterol Sulfate [Combivent Respimat] 1 puff IN QID 04/14/14 [ History Confirmed 11/09/16 Last Taken 11/09/16 15:06] Simvastatin 20 mg PO HS 04/14/14 [History Confirmed 11/09/16 Last Taken 09:22] Albuterol Sulfate Nebs [Proventil, Ventolin] 3 ml NEB TID PRN 11/04/16 [History Confirmed 11/09/16 Last Taken 11/09/16 14:09] Alendronate Sodium [Fosamax] 70 mg PO MARIE 11/04/16 [History Confirmed 11/04/16 Last Taken 10/30/15] Aspirin (Enteric Coated) [Halfprin] 81 mg PO DAILY 11/04/16 [History Confirmed 11/09/16 Last Taken 11/09/16 09:20] Calcium Carbonate/Vitamin D3 [Calcium 600-Vit D3 400 Tablet] 1 tab PO BID [History Confirmed 11/09/16 Last Taken 11/09/16 12:05] Cholecalciferol (Vitamin D3) [Children's Vitamin D3] 1,000 unit PO DAILY [History Confirmed 11/09/16 Last Taken 11/09/16 12:05] Fluticasone Propionate [Flonase] 1 spray SADAF DAILY 11/04/16 [History Confirmed 11/09/16 Last Taken 11/09/16 09:20] Folic Acid 1 mg PO DAILY 11/04/16 [History Confirmed 11/09/16 Last Taken 09:20] Guaifenesin 100 mg PO BID 11/04/16 [History Confirmed 11/09/16 Last Taken 09:20] Methotrexate Sodium [Methotrexate] 12.5 mg PO MARIE 11/04/16 [History Confirmed Last Taken 11/06/16] Multivitamin [Multivitamins] 1 each PO DAILY 11/04/16 [History Confirmed Last Taken 11/09/16 12:00] Prednisone [Deltasone, Orasone] 7 mg PO DAILY 11/04/16 [History Confirmed Last Taken 11/09/16 15:07 solumedrol 40 mg iv] Sodium Chloride [Saline Nasal [place]] 1 spray SADAF 5XD 11/04/16 [History Confirmed 11/09/16 Last Taken 11/09/16 15:06] Azithromycin [Zithromax Tri-Everett] 500 mg PO DAILY #3 tablet 11/09/16 [Rx Last Taken Unknown] Cefdinir [Omnicef] 300 mg PO BID #14 cap 11/09/16 [Rx Last Taken Unknown] Hydrocodone/Chlorphen Polis [Tussionex] 5 ml PO BID #4 oz 11/09/16 [Rx Last Taken Unknown] Nicotine [Nicoderm] 21 mg TOP DAILY #30 pat 11/09/16 [Rx Last Taken Unknown] Prednisone [Sterapred DS 10 mg/12 day pack] 48 tab PO DIR #1 pack 11/09/16 [ Rx Last Taken Unknown] Probiotic Blend [Maru Q] 1 tab PO BIDLS #30 tablet 11/09/16 [Rx Last Taken Unknown] Tamsulosin HCl [Flomax] 0.4 mg PO DAILY #30 capsule 11/09/16 [Rx Last Taken Unknown] 11/09/16 05:25 11/09/16 05:25 Laboratory Results - last 24 hr 11/09/16 11/09/16 05:25 05:25 WBC 7.0 RBC 4.63 L Hgb 15.0 Hct 45.5 MCV 98 H MCH 32.4 H MCHC 33.0 RDW 13.1 Plt Count 234 MPV 8.6 Sodium 134 L Potassium 4.9 Chloride 98 Carbon Dioxide 30 Anion Gap 11 BUN 19 Creatinine 0.60 L Estimated GFR (MDRD) > 60 Glucose 93 Calculated Osmolality 260 L Calcium 8.8 O2 Device: Nasal Cannula Oxygen to be used after Discharge: Continuous Diet at Discharge: Heart Healthy, Low Salt Activity: As Tolerated Discontinue use of:: Alcohol, All Types of Tobacco - DC Summary Notes Hospital Course Note:: Discharge summary on patient named HILL ELIZABETH admitted to [facility] on 11/03/16 by Brandon Moore MD. Date of discharge is []. CC: Dr. Kirk Total Time: 38 min Code: 52697 (>30min.) - Physical Exam Vital Signs: Last Vital Signs Temp 98.3 F 11/09/16 11:00 Pulse 72 11/09/16 11:00 Resp 18 11/09/16 11:00 BP 138/77 11/09/16 11:00 Pulse Ox 92 11/09/16 11:00 Oxygen Pulse Oxygen Saturation 92 O2 Device Nasal Cannula Oxygen Flow Rate 2 Fraction of Inspired Oxygen ( 45 FIO2) Constitutional: No apparent distress, Alert Oriented to: Time, Person, Place - HEENT Head: Normal (normocephalic,atraumatic, trachea midline) Eye: Normal (EOMI, Sclera white) Oropharynx: Normal (moist) ENT EAC: Normal (No oropharyngeal lesions or erythema. Mucous membranes are dry. ) TMJ: Normal Nose: No Symptoms Reported (without discharge or bleeding) - Respiratory/Cardiovascular Respiratory: Diminished, Rhonchi, Wheezes. negative: Rales, Tachypnea, Excursion Cardiovascular: Normal (RRR , Normal S1, S2. No murmurs, rubs, or gallops. PMI non-displaced. Carotids: no carotid bruits. No bradycardia or tachycardia. DP pulses 2+ bilaterally.) - GI Auscultation: Normal (normal active sounds) Palpation: Normal (soft, non distended and nontender) Tenderness: Non tender (No rebound or guarding) Cuevas's Sign: Negative - Musculoskeletal Back: Normal (Non-Tender) Extremities: Normal (normal tone, no cyanosis or edema) - Integumentary Skin: Normal (Warm dry no rashes) Lymphatics: Normal (No lymph node swelling or pain.) - Neurologic Memory Impaired: Normal Motor Function: Normal (Motor 5/5 throughout.Normal tone, Pulses 2+ No cyanosis or edema, FROM) Cranial Nerve: Normal (CN II-XII intact sensation, strength 5/5) Cerebellar: Normal (Babinski: toes downgoing bilaterally. Intact Finger to nose. Sensory grossly intact to light touch. Intact rapid alternating movements bilaterally. No pronator drift.) Mood Description: Normal Thought: Coherent Perception: Normal (Normal and appropriate affect.)
[2016-11-09 16:20] VITALS: PULSE 83
== END 2016-11-09 17:15 | disposition home health service (06) | DRG 192 ==
LOC: ED 13:45 → PCU 16:24
PROVIDERS: ADMIT Internal Medicine; ATTEND Internal Medicine
PROC: 039B3ZZ Drainage of Right Radial Artery, Percutaneous Approach (ICD-10-PCS; principal; 2016-11-03)
DX: J44.0 Chronic obstructive pulmonary disease with (acute) lower respiratory infection (principal); F17.210 Nicotine dependence, cigarettes, uncomplicated; J44.1 Chronic obstructive pulmonary disease with (acute) exacerbation; J20.9 Acute bronchitis, unspecified; R09.02 Hypoxemia; J45.909 Unspecified asthma, uncomplicated; Z71.6 Tobacco abuse counseling; N40.0 Benign prostatic hyperplasia without lower urinary tract symptoms; Z79.82 Long term (current) use of aspirin; Z79.899 Other long term (current) drug therapy; Z85.46 Personal history of malignant neoplasm of prostate
CPT/HCPCS: 36415; 36600; 71020; 80048; 80053; 82550; 82803; 83880; 84484; 85025; 85027; 85610; 85730; 87040; 93005; 94640; 96365; 96372; 96375; 98960; 99283; 99406; G0237; J0456; J0696; J1650; J2270; J2920; J2930; J3490; J7060; J7070; J7620; J8610; S0164